=== PATIENT | male | born 1970 | race Caucasian/White ===

== ENCOUNTER 2023-04-26 21:41 | Emergency (ER) | payer OTHER ==
[2023-04-26] MEDS ORDERED: HYDROcodone/APAP 5-325MG 1 EACH TAB PO STA (22:12)
[2023-04-26] MEDS ORDERED: AMOXIC-POT CLAV 875-125MG 1 EACH TAB PO STA (22:12)
[2023-04-26] MEDS ORDERED: KETOROLAC 15 MG/ML 1 ML VIAL IM STA (22:12)
[2023-04-26] MEDS ORDERED: ACET/COD 300 MG/30 MG STARTER PACK 6 TAB BTL PO STA (22:13)
[2023-04-26] MEDS ORDERED: IBUPROFEN 600 MG STARTER PACK 4 TAB BTL PO STA (22:13)
--- NOTE | 2023-04-26 22:14 | ED ---
General Adult HPI - General Chief complaint: Dental/Oral Stated complaint: Dental Pain Time Seen by Provider: 04/26/23 21:51 Source: patient, RN notes reviewed Mode of arrival: ambulatory Limitations: no limitations - History of Present Illness Initial comments: 52-year-old male presents emergency department chief complaint of dental pain. He states that this started today after the crown on his right lower molar broke. He does not have a dentist at this time. He did not take anything for pain prior to arrival. He has a history of hypertension. - Related Data Previous Rx's Medication Instructions Recorded Amoxic-Pot Clav 875-125Mg 1 tab PO Q12HR #14 tab 04/26/23 [Augmentin 875-125] Allergies Allergy/AdvReac Type Severity Reaction Status Date / Time No Known Allergies Allergy Verified 04/26/23 21:46 Review of Systems ROS Statement: Those systems with pertinent positive or pertinent negative responses have been documented in the HPI. ROS Other: All systems not noted in ROS Statement are negative. Past Medical History Past Medical History: Hypertension History of Any Multi-Drug Resistant Organisms: None Reported Past Surgical History: No Surgical Hx Reported Past Psychological History: No Psychological Hx Reported Smoking Status: Former smoker Past Alcohol Use History: None Reported Past Drug Use History: None Reported General Exam Limitations: no limitations General appearance: alert, in no apparent distress Head exam: Present: atraumatic, normocephalic, normal inspection Eye exam: Present: normal appearance, PERRL, EOMI. Absent: scleral icterus, conjunctival injection, periorbital swelling ENT exam: Present: mucous membranes moist, other (fractured right lower molar, no visible abscess) Neck exam: Present: normal inspection, full ROM. Absent: tenderness, meningismus, lymphadenopathy Respiratory exam: Present: normal lung sounds bilaterally. Absent: respiratory distress, wheezes, rales, rhonchi, stridor Cardiovascular Exam: Present: regular rate, normal rhythm, normal heart sounds. Absent: systolic murmur, diastolic murmur, rubs, gallop, clicks Neurological exam: Present: alert, oriented X3 Psychiatric exam: Present: normal affect, normal mood Skin exam: Present: warm, dry, intact, normal color. Absent: rash Course Vital Signs 04/26/23 04/26/23 21:43 22:38 Temperature 97.7 F 98.0 F Pulse Rate 89 82 Respiratory 18 20 Rate Blood Pressure 188/117 140/72 O2 Sat by Pulse 96 98 Oximetry Medical Decision Making - Medical Decision Making Was pt. sent in by a medical professional or institution ([facility], [facility], urgent care, hospital, or snf...) When possible be specific @ -No Did you speak to anyone other than the patient for history (EMS, parent, family, police, friend...)? What history was obtained from this source @ -No Did you review nursing and triage notes (agree or disagree)? Why? @ -I reviewed and agree with nursing and triage notes Were old charts reviewed (outside hosp., previous admission, EMS record, old EKG, old radiological studies, urgent care reports/EKG's, snf records)? Report findings @ -No old charts were reviewed Differential Diagnosis (chest pain, altered mental status, abdominal pain women, abdominal pain men, vaginal bleeding, weakness, fever, dyspnea, syncope, headache, dizziness, GI bleed, back pain, seizure, CVA, palpatations, mental health, musculoskeletal)? @ -dental infection, dental abscess, dental appliance issue, parotiditis, strep throat, this list is not all inclusive EKG interpreted by me (3pts min.). @ -none X-rays interpreted by me (1pt min.). @ -None done CT interpreted by me (1pt min.). @ -None done U/S interpreted by me (1pt. min.). @ -None done What testing was considered but not performed or refused? (CT, X-rays, U/S, labs)? Why? @ -None What meds were considered but not given or refused? Why? @ -None Did you discuss the management of the patient with other professionals (professionals i.e. [facility] Cervantes, [facility], lab, RT, psych nurse, criminal justice social worker, full stack java developer, teacher, delinquency prevention officer, piano case maker)? Give summary @ -No Was smoking cessation discussed for >3mins.? @ -No Was critical care preformed (if so, how long)? @ -No Were there social determinants of health that impacted care today? How? (Homelessness, low income, unemployed, alcoholism, drug addiction, transportation, low edu. Level, literacy, decrease access to med. care, fpc, rehab)? @ -No Was there de-escalation of care discussed even if they declined (Discuss DNR or withdrawal of care, Hospice)? DNR status @ -No What co-morbidities impacted this encounter? (DM, HTN, Smoking, COPD, CAD, Cancer, CVA, ARF, Chemo, Hep., AIDS, mental health diagnosis, sleep apnea, morbid obesity)? @ -None Was patient admitted / discharged? Hospital course, mention meds given and route, prescriptions, significant lab abnormalities, going to OR and other pertinent info. @ -discharged. Patient presented to the emergency department for chief complaint of dental pain x1 day. Patient given Toradol, [place]. Patient given Tylenol 3 starter pack to go home with. Patient will be started on augmentin for dental infection. Advised to follow up with dentist. Patient stable at time of discharge. Case discussed with Dr. Cordon Undiagnosed new problem with uncertain prognosis? @ -No Drug Therapy requiring intensive monitoring for toxicity (Heparin, Nitro, Insulin, Cardizem)? @ -No Were any procedures done? @ -No Diagnosis/symptom? @ -dental infection, fractured tooth Acute, or Chronic, or Acute on Chronic? @ -acute Uncomplicated (without systemic symptoms) or Complicated (systemic symptoms)? @ -Uncomplicated Side effects of treatment? @ -No Exacerbation, Progression, or Severe Exacerbation? @ -No Poses a threat to life or bodily function? How? (Chest pain, [place], [place], pneumonia, PE, COPD, DKA, ARF, appy, cholecystitis, CVA, Diverticulitis, Homicidal, Suicidal, threat to staff... and all critical care pts) @ -No Disposition Clinical Impression: Fractured dental implant Disposition: HOME SELF-CARE Condition: Stable Instructions (If sedation given, give patient instructions): Toothache (ED) Additional Instructions: Please follow up with dentistry. Monitor your blood pressure at home. Follow up with your primary care provider. Return to the emergency department for new or worsening symptoms. Prescriptions: Amoxic-Pot Clav 875-125Mg [Augmentin 875-125] 1 tab PO Q12HR #14 tab Is patient prescribed a controlled substance at d/c from ED?: No Referrals: Nonstaff,Physician [Primary Care Provider] - 1-2 days
[2023-04-26 23:01] VITALS: BP 140/72; PULSE 82; RESP 20; TEMP 98
== END 2023-04-26 22:59 | disposition home or self-care (01) ==
LOC: EC 21:41
DX: K08.530 Fractured dental restorative material without loss of material (principal); I10 Essential (primary) hypertension; Z87.891 Personal history of nicotine dependence
CPT/HCPCS: 99283; 96372; J1885

== ENCOUNTER 2023-05-09 04:26 | Emergency (ER) | payer OTHER ==
[2023-05-09 04:43] VITALS: BP 158/100; PULSE 99; RESP 18; TEMP 98.1
[2023-05-09] MEDS ORDERED: AMPICILLIN-SULBACTAM 3 GM in SODIUM CHLORIDE 0.9% 100 ML IVPB STA (04:47)
[2023-05-09] MEDS ORDERED: DEXAMETHASONE SOD PHOSPHATE 10 MG/ML 1 ML VIAL IVP STA (04:48)
[2023-05-09] MEDS ORDERED: MORPHINE SULFATE 4 MG/ML SYRINGE IVP STA (04:48)
[2023-05-09] MEDS ORDERED: SODIUM CHLORIDE 0.9% 1,000 ML IV STA ×2 (04:49→05:57)
--- NOTE | 2023-05-09 04:59 | ED ---
General Adult HPI - General Source: patient, RN notes reviewed, old records reviewed Mode of arrival: ambulatory Limitations: no limitations <Luis Alfredo Frias - Last Filed: 05/09/23 06:28> <Gianna Cordon - Last Filed: 05/10/23 08:00> - General Chief complaint: Skin/Abscess/Foreign Body Stated complaint: Facial Swelling Time Seen by Provider: 05/09/23 04:47 - History of Present Illness Initial comments: Patient is a 52-year-old male with no significant past medical history who presents emergency Department complaining of facial infection. States he does not take any medications. States that 2 days ago he popped a boil/zit that was located in the midline of his lower lip and since that time he has had increased swelling and pain over the left lower jaw extending from the lip line towards the chin and out towards his cheek. Denies any difficulty in swallowing or breathing. States his speech is different because of the swelling. Denies any tongue swelling that he knows of. Denies any fevers, chills, cough. Was due to have a dental procedure yesterday however they refused to the infection. Has not been on antibiotics. Last tetanus was last year. Presents for further evaluation at this time. Is not on any form of ALISON inhibitor.States he is still getting drainage from the zit site. (Luis Alfredo Frias) - Related Data Previous Rx's Medication Instructions Recorded Amoxic-Pot Clav 875-125Mg 1 tab PO Q12HR #14 tab 04/26/23 [Augmentin 875-125] Cephalexin [Keflex] 500 mg PO Q6HR #28 cap 05/09/23 Cyclobenzaprine [Flexeril] 10 mg PO HS #10 tab 05/09/23 HYDROcodone/APAP 7.5-325MG [[place] 1 tab PO Q6HR PRN 3 Days #12 tab 05/09/23 7.5-325] predniSONE [Deltasone] 20 mg PO BID #10 tab 05/09/23 valACYclovir HCL [Valacyclovir] 1,000 mg PO BID #14 tab 05/09/23 Allergies Allergy/AdvReac Type Severity Reaction Status Date / Time No Known Allergies Allergy Verified 05/09/23 04:34 Review of Systems ROS Other: All systems not noted in ROS Statement are negative. <Luis Alfredo Frias - Last Filed: 05/09/23 06:28> ROS Other: All systems not noted in ROS Statement are negative. <Gianna Cordon Annette - Last Filed: 05/10/23 08:00> ROS Statement: Those systems with pertinent positive or pertinent negative responses have been documented in the HPI. Past Medical History Past Medical History: Hypertension History of Any Multi-Drug Resistant Organisms: None Reported Past Surgical History: No Surgical Hx Reported Past Psychological History: No Psychological Hx Reported Smoking Status: Former smoker Past Alcohol Use History: None Reported Past Drug Use History: None Reported <Luis Alfredo Frias - Last Filed: 05/09/23 06:28> General Exam Limitations: no limitations <Luis Alfredo Frias - Last Filed: 05/09/23 06:28> - General Exam Comments Initial Comments: General: Appears in mild distress. HEAD: Normal with no signs of head trauma. EYES: PERRLA, EOMI, conjunctiva normal, no discharge. Pupils are 3 mm equal bilaterally. ENT: Hearing grossly intact. Edema and induration located over the left aspect of the mandible anteriorly extending from the lip line to the lower edge of the mandible. Uvula midline. No posterior oropharyngeal swelling. No tongue swelling. No stridor. Tolerating oral secretions. No obvious floor of the mouth swelling. RESPIRATORY: Clear breath sounds bilaterally. No wheezes, rales, or rhonchi. C/V: Regular rate and rhythm. S1 and S2 auscultated, peripheral pulses 2+ and intact throughout ABD: Abd is soft, nontender, nondistended EXT: Normal range of motion, no obvious deformity SKIN: Erythema, edema located over the left skin over the mandible. No obvious fluctuance. Purulent material located at the source of a pimple on the inferior aspect of the lower lip. NEURO: Alert and oriented x 4. Cranial nerves II-XII intact. No focal sensory or strength deficits. (Luis Alfredo Frias) Course Vital Signs 05/09/23 04:30 Temperature 98.1 F Pulse Rate 99 Respiratory 18 Rate Blood Pressure 158/100 O2 Sat by Pulse 99 Oximetry Medical Decision Making - Lab Data Result diagrams: 05/09/23 05:05 05/09/23 05:05 <Luis Alfredo Frias - Last Filed: 05/09/23 06:28> - Lab Data Result diagrams: 05/09/23 05:05 05/09/23 05:05 <Gianna Cordon - Last Filed: 05/10/23 08:00> - Medical Decision Making Was pt. sent in by a medical professional or institution ([facility], [facility], urgent care, hospital, or long term...) When possible be specific @ -No Did you speak to anyone other than the patient for history (EMS, parent, family, police, friend...)? What history was obtained from this source @ -No Did you review nursing and triage notes (agree or disagree)? Why? @ -I reviewed and agree with nursing and triage notes Were old charts reviewed (outside hosp., previous admission, EMS record, old EKG, old radiological studies, urgent care reports/EKG's, long term records)? Report findings @ -No old charts were reviewed Differential Diagnosis (chest pain, altered mental status, abdominal pain women, abdominal pain men, vaginal bleeding, weakness, fever, dyspnea, syncope, headache, dizziness, GI bleed, back pain, seizure, CVA, palpatations, mental health, musculoskeletal)? @ -Cellulitis, Lyle's angina, abscess, angioedema. This list is not all inclusive. EKG interpreted by me (3pts min.). @ -None done X-rays interpreted by me (1pt min.). @ -None done CT interpreted by me (1pt min.). @ -Pending U/S interpreted by me (1pt. min.). @ -None done What testing was considered but not performed or refused? (CT, X-rays, U/S, labs)? Why? @ -None What meds were considered but not given or refused? Why? @ -None Did you discuss the management of the patient with other professionals (professionals i.e. [facility] Cervantes, [facility], lab, RT, psych nurse, adoption social worker, blanket inspector, t eacher, agricultural technical officer, porter sample case)? Give summary @ -No Was smoking cessation discussed for >3mins.? @ -No Was critical care preformed (if so, how long)? @ -No Were there social determinants of health that impacted care today? How? (Homelessness, low income, unemployed, alcoholism, drug addiction, transportation, low edu. Level, literacy, decrease access to med. care, [facility], rehab)? @ -No Was there de-escalation of care discussed even if they declined (Discuss DNR or withdrawal of care, Hospice)? DNR status @ -No What co-morbidities impacted this encounter? (DM, HTN, Smoking, COPD, CAD, Cancer, CVA, ARF, Chemo, Hep., AIDS, mental health diagnosis, sleep apnea, morbid obesity)? @ -None Was patient admitted / discharged? Hospital course, mention meds given and ro crow, prescriptions, significant lab abnormalities, going to OR and other pertinent info. @ -Based on the patient's presentation and physical exam, presents with concern for facial infection. Low concern for angioedema at this time as he is on no ALISON inhibitor use and no history of it. Based be more infectious in nature considering there is a source, the pimple located over the inferior aspect of the lip which is still draining purulent material. Over concern for Lyle ang sharath, we will obtain CT imaging. Labs will be obtained. Cultures will be sent and obtained. Patient will be given a dose of Unasyn as well as Decadron. He is up-to-date on tetanus. He was in agreement this plan. He will receive morphine for pain control. Patient's laboratory studies remarkable for leukocytosis of 13, lactic acid of 2.9. Imaging is still pending. Patient signed out to Dr. Cordon pending results of imaging. Undiagnosed new problem with uncertain prognosis? @ -No Drug Therapy requiring intensive monitoring for toxicity (Heparin, Nitro, Insulin, Cardizem)? @ -No Were any procedures done? @ -No (Luis Alfredo Frias) Was patient admitted / discharged? Hospital course, mention meds given and route, prescriptions, significant lab abnormalities, going to OR and other pertinent info. @ -I evaluated the patient myself. I discussed the CT results with him. Patient adamantly does not want to stay hospitalized even though this is offered. I questioned him about his previous antibiotic use. He was seen in the emergency department on the of this month and prescribed Augmentin. He states he never knew that he was prescribed antibiotics and therefore did not take any. As the patient has not previously failed outpatient treatment for his cellulitis/herpes labialis I do feel that it is appropriate to try outpatient antibiotics and antivirals. Patient was given a dose of valacyclovir in the emergency department. He is requesting pain medications upon discharge. I will prescribe him a short course of [place]. Side effect profile was discussed. Patient's will monitor symptoms. Return in 48 hours should his symptoms not improve or if they get worse. He was agreeable to this. Patient discharged in stable condition Undiagnosed new problem with uncertain prognosis? @ -No Drug Therapy requiring intensive monitoring for toxicity (Heparin, Nitro, Insulin, Cardizem)? @ -No Were any procedures done? @ -No Diagnosis/symptom? @ -Acute lip/left lower face swelling, possible herpes labialis, possible cellulitis Acute, or Chronic, or Acute on Chronic? @ -Acute Uncomplicated (without systemic symptoms) or Complicated (systemic symptoms)? @ -Complicated Side effects of treatment? @ -No Exacerbation, Progression, or Severe Exacerbation? @ -No Poses a threat to life or bodily function? How? (Chest pain, [place], [place], pneumonia, PE, COPD, DKA, ARF, appy, cholecystitis, CVA, Diverticulitis, Homicidal, Suicidal, threat to staff... and all critical care pts) @ -No (Gianna Cordon) - Lab Data Lab Results 05/09/23 05/09/23 05/09/23 Range/Units 05:05 05:05 05:05 WBC 13.0 H (3.8-10.6) k/uL RBC 4.72 (4.30-5.90) m/uL Hgb 15.2 (13.0-17.5) gm/dL Hct 45.5 (39.0-53.0) % MCV 96.4 (80.0-100.0) fL MCH 32.2 (25.0-35.0) pg MCHC 33.5 (31.0-37.0) g/dL RDW 13.2 (11.5-15.5) % Plt Count 376 (150-450) k/uL MPV 7.5 Neutrophils % 71 % Lymphocytes % 17 % Monocytes % 8 % Eosinophils % 1 % Basophils % 0 % Neutrophils # 9.3 H (1.3-7.7) k/uL Lymphocytes # 2.2 (1.0-4.8) k/uL Monocytes # 1.1 H (0-1.0) k/uL Eosinophils # 0.2 (0-0.7) k/uL Basophils # 0.0 (0-0.2) k/uL Sodium 136 L (137-145) mmol/L Potassium 4.4 (3.5-5.1) mmol/L Chloride 100 (98-107) mmol/L Carbon Dioxide 25 (22-30) mmol/L Anion Gap 11 mmol/L BUN 14 (9-20) mg/dL Creatinine 0.80 (0.66-1.25) mg/dL Est GFR (CKD-EPI)AfAm >90 (>60 ml/min/1.73 sqM) Est GFR (CKD-EPI)NonAf >90 (>60 ml/min/1.73 sqM) Glucose 162 H (74-99) mg/dL Lactic Ac Sepsis Rflx Plasma Lactic Acid [place] 2.9 H* (0.7-2.0) mmol/L Calcium 9.6 (8.4-10.2) mg/dL Total Bilirubin 0.3 (0.2-1.3) mg/dL AST 20 (17-59) U/L ALT 21 (4-49) U/L Alkaline Phosphatase 64 (38-126) U/L Total Protein 6.6 (6.3-8.2) g/dL Albumin 4.1 (3.5-5.0) g/dL 05/09/23 Range/Units 05:56 WBC (3.8-10.6) k/uL RBC (4.30-5.90) m/uL Hgb (13.0-17.5) gm/dL Hct (39.0-53.0) % MCV (80.0-100.0) fL MCH (25.0-35.0) pg MCHC (31.0-37.0) g/dL RDW (11.5-15.5) % Plt Count (150-450) k/uL MPV Neutrophils % % Lymphocytes % % Monocytes % % Eosinophils % % Basophils % % Neutrophils # (1.3-7.7) k/uL Lymphocytes # (1.0-4.8) k/uL Monocytes # (0-1.0) k/uL Eosinophils # (0-0.7) k/uL Basophils # (0-0.2) k/uL Sodium (137-145) mmol/L Potassium (3.5-5.1) mmol/L Chloride (98-107) mmol/L Carbon Dioxide (22-30) mmol/L Anion Gap mmol/L BUN (9-20) mg/dL Creatinine (0.66-1.25) mg/dL Est GFR (CKD-EPI)AfAm (>60 ml/min/1.73 sqM) Est GFR (CKD-EPI)NonAf (>60 ml/min/1.73 sqM) Glucose (74-99) mg/dL Lactic Ac Sepsis Rflx Y Plasma Lactic Acid [place] (0.7-2.0) mmol/L Calcium (8.4-10.2) mg/dL Total Bilirubin (0.2-1.3) mg/dL AST (17-59) U/L ALT (4-49) U/L Alkaline Phosphatase (38-126) U/L Total Protein (6.3-8.2) g/dL Albumin (3.5-5.0) g/dL Disposition <Luis Alfredo Frias - Last Filed: 05/09/23 06:28> Is patient prescribed a controlled substance at d/c from ED?: Yes When asked, does pt state using other controlled substances?: No If prescribed controlled substance>3 days was MAPS reviewed?: Prescribed <3 Days If opioid is for acute pain is fill amount 7 days or less?: Yes Time of Disposition: 07:55 <Gianna Cordon - Last Filed: 05/10/23 08:00> Clinical Impression: Facial cellulitis, Oral herpes simplex infection Disposition: HOME SELF-CARE Condition: Stable Instructions (If sedation given, give patient instructions): Cellulitis (ED) Additional Instructions: Please take the antibiotics and antivirals as directed. Return should your symptoms not improve in 48 hours Prescriptions: Cephalexin [Keflex] 500 mg PO Q6HR #28 cap HYDROcodone/APAP 7.5-325MG [[place] 7.5-325] 1 tab PO Q6HR PRN 3 Days #12 tab PRN Reason: Pain valACYclovir HCL [Valacyclovir] 1,000 mg PO BID #14 tab Referrals: Nonstaff,Physician [Primary Care Provider] - 1-2 days
[2023-05-09 05:36] LABS: Basophils % (A) 0 %; Eosinophils # (A) 0.2 k/uL (0-0.7); Eosinophils % (A) 1 %; HCT 45.5 % (39.0-53.0); HGB 15.2 gm/dL (13.0-17.5); Lymphocytes # (A) 2.2 k/uL (1.0-4.8); Lymphocytes % (A) 17 %; MCH 32.2 pg (25.0-35.0); MCHC 33.5 g/dL (31.0-37.0); MCV 96.4 fL (80.0-100.0); Mean Platelet Volume 7.5; Monocytes # (A) 1.1 k/uL (0-1.0); Monocytes % (A) 8 %; Neutrophils # (A) 9.3 k/uL (1.3-7.7); Neutrophils % (A) 71 %; Platelet Count 376 k/uL (150-450); RBC 4.72 m/uL (4.30-5.90); RDW 13.2 % (11.5-15.5)
[2023-05-09 05:54] LABS: ALT 21 U/L (4-49); AST 20 U/L (17-59); African American GFR (CKD) >90 (>60 ml/min/1.73 sqM); Albumin 4.1 g/dL (3.5-5.0); Alkaline Phosphatase 64 U/L (38-126); Anion Gap 11 mmol/L; Blood Urea Nitrogen 14 mg/dL (9-20); Calcium 9.6 mg/dL (8.4-10.2); Carbon Dioxide 25 mmol/L (22-30); Chloride 100 mmol/L (98-107); Glucose 162 mg/dL (74-99); Non-African American GFR(CKD) >90 (>60 ml/min/1.73 sqM); Potassium 4.4 mmol/L (3.5-5.1); Sodium 136 mmol/L (137-145); Total Bilirubin 0.3 mg/dL (0.2-1.3); Total Protein 6.6 g/dL (6.3-8.2)
--- NOTE | 2023-05-09 07:23 | CT ---
EXAMINATION TYPE: CT soft tissue neck w con CT DLP: 240 mGycm, Automated exposure control for dose reduction was used. DATE OF EXAM: 05/09/2023 6:22 AM COMPARISON: None. CLINICAL INDICATION:Male, 52 years old with history of facial infection; [facility], TECHNIQUE: Standard enhanced CT of the neck. Axial sections with coronal and sagittal reformats were obtained. Contrast used: mL of , (None if empty) Oral contrast used: (None if empty) FINDINGS: Brain: Visualized portions are grossly unremarkable. Metallic clip near the [place] of [place] near mid line.. Orbits: Unremarkable Sinuses: Few opacified right mastoid air cells. Mild mucosal thickening of the left mastoid air cells . Spaces of the neck: Simultaneous edema/fat stranding along the left cheek near the mandible. No teeth on the left lower mandible, however there is a left upper tooth first bicuspid with periapical lucen cy. The palatine tonsils are enlarged with narrowing of the airway.. Musculoskeletal: No acute osseous pathology. Lymph nodes: Multiple nonenlarged lymph nodes are seen along both anterior chains of the neck. Vascular structures: Visualized major arteries are patent without evidence of aneurysm. Thoracic Inlet/airway: Airway is patent. Mild paraseptal emphysema changes in the lung apices. Soft tissues/Thyroid: Thyroid and remainder of the soft tissues are unremarkable. Other: none. IMPRESSION 1. Soft tissue swelling of the left cheek without evidence of organizing fluid collection. There are no teeth in the lower mandible in this area. Left upper second bicuspid periapical lucency compatibl e with periodontal disease. The inflammation is not definitively centered around this tooth however. Correlate for cellulitis possibly secondary to periodontal disease. 2. [place] tonsil enlargement with narrowing of the airway 3. Trace right mastoid air cell effusion. 4. Mild emphysema.
[2023-05-09] MEDS ORDERED: valACYclovir HCL 1,000 MG TABLET PO STA (07:50)
== END 2023-05-09 08:21 | disposition home or self-care (01) ==
LOC: EC 04:26
DX: L03.211 Cellulitis of face (principal); B00.2 Herpesviral gingivostomatitis and pharyngotonsillitis; J35.1 Hypertrophy of tonsils; J43.9 Emphysema, unspecified; I10 Essential (primary) hypertension; Z87.891 Personal history of nicotine dependence
CPT/HCPCS: 36415; 80053; 83605; 85025; 87040; 87077; 87186; 70491; 99284; 96365; 96375 ×2; 96361; J2270; J1100; J0295; Q9967

== ENCOUNTER 2023-05-09 13:43 | Emergency (ER) | payer OTHER ==
--- NOTE | 2023-05-09 13:51 | ED ---
ENT HPI <Mahogany Anne - Last Filed: 05/09/23 13:49> <Gianna Cordon - Last Filed: 05/09/23 15:46> - General Stated complaint: abcess tooth Time Seen by Provider: 05/09/23 14:05 - History of Present Illness Initial comments: Patient is a 52-year-old gentleman who returns to the emergency room with multiple complaints including dental pain, infection to the lips and TMJ pain. Was seen last night for similar complaints. (Mahogany Anne) 58-year-old male just seen in the emergency department this morning for facial cellulitis. He was discharged home on antibiotics and antivirals as there was suspicion for herpes simplex. Patient states that he went home and began having terrible pain in his right TMJ. States that this is a long-standing issue for him. He also has dental pain on the right upper maxilla. Swelling from the patient's cellulitis/herpes is improved from discharge earlier today. He had been offered hospitalization however he declined. He did nut picker his medications from the pharmacy. He admits to taking 1 of the pain pills however it did not alleviate his pain and therefore he came right back to the emergency department. He denies any fevers. States that he did see his dentist in regards to his dental pain however because of his lip infection they would not actively treat him. Patient presents requesting stronger pain medications for at home as well as pain control in the emergency department (Gianna Cordon) - Related Data Previous Rx's Medication Instructions Recorded Amoxic-Pot Clav 875-125Mg 1 tab PO Q12HR #14 tab 04/26/23 [Augmentin 875-125] Cephalexin [Keflex] 500 mg PO Q6HR #28 cap 05/09/23 Cyclobenzaprine [Flexeril] 10 mg PO HS #10 tab 05/09/23 HYDROcodone/APAP 7.5-325MG [Rumsey 1 tab PO Q6HR PRN 3 Days #12 tab 05/09/23 7.5-325] predniSONE [Deltasone] 20 mg PO BID #10 tab 05/09/23 valACYclovir HCL [Valacyclovir] 1,000 mg PO BID #14 tab 05/09/23 Allergies Allergy/AdvReac Type Severity Reaction Status Date / Time No Known Allergies Allergy Verified 05/09/23 04:34 Review of Systems ROS Other: All systems not noted in ROS Statement are negative. <Mahogany Anne - Last Filed: 05/09/23 13:49> ROS Other: All systems not noted in ROS Statement are negative. <Gianna Cordon Annette - Last Filed: 05/09/23 15:46> ROS Statement: Those systems with pertinent positive or pertinent negative responses have been documented in the HPI. Past Medical History Past Medical History: Hypertension History of Any Multi-Drug Resistant Organisms: None Reported Past Surgical History: No Surgical Hx Reported Past Psychological History: No Psychological Hx Reported Smoking Status: Former smoker Past Alcohol Use History: None Reported Past Drug Use History: None Reported <Mahogany Anne - Last Filed: 05/09/23 13:49> General Exam <Mahogany Anne - Last Filed: 05/09/23 13:49> General appearance: alert, in no apparent distress Head exam: Present: atraumatic, normocephalic, normal inspection Eye exam: Present: normal appearance, PERRL, EOMI. Absent: scleral icterus, conjunctival injection, periorbital swelling ENT exam: Present: mucous membranes moist, other (Tenderness to the TMJ on the right. No overlying swelling. No identifiable oral abscess. Airway is patent. Mild swelling to the left upper lip with crusting to the right lower lip) Neck exam: Present: normal inspection. Absent: tenderness, meningismus, lymphadenopathy Respiratory exam: Present: normal lung sounds bilaterally. Absent: respiratory distress, wheezes, rales, rhonchi, stridor Cardiovascular Exam: Present: regular rate, normal rhythm, normal heart sounds. Absent: systolic murmur, diastolic murmur, rubs, gallop, clicks GI/Abdominal exam: Present: soft, normal bowel sounds. Absent: distended, tende rness, guarding, rebound, rigid Extremities exam: Present: normal inspection, full ROM, normal capillary refill. Absent: tenderness, pedal edema, joint swelling, calf tenderness Back exam: Present: normal inspection Neurological exam: Present: alert, oriented X3, CN II-XII intact Psychiatric exam: Present: normal affect, normal mood Skin exam: Present: warm, dry, intact, normal color. Absent: rash <Gianna Cordon Annette - Last Filed: 05/09/23 15:46> - General Exam Comments Initial Comments: Visual Physical Exam Vital signs reviewed General: Well-appearing, nontoxic, no acute distress. Head: Normocephalic, atraumatic Eyes: PERRLA, EOMI ENT: Airway patent Chest: Nonlabored breathing Skin: No visual rash, normal skin tone Neuro: Alert and oriented 3 Musculoskeletal: No gross abnormalities (Mahogany Anne) Course Vital Signs 05/09/23 13:58 Temperature 98.1 F Pulse Rate 53 L Respiratory 16 Rate Blood Pressure 173/80 O2 Sat by Pulse 98 Oximetry Medical Decision Making <Mahogany Anne - Last Filed: 05/09/23 13:49> <Gianna Cordon - Last Filed: 05/09/23 15:46> - Medical Decision Making The quick note portion of this exam was completed by myself, electronically signed by EZIO Rojas. (Mahogany Anne) Was pt. sent in by a medical professional or institution (, PA, CURAM DEVELOPER, urgent care, hospital, or long term...) When possible be specific @ -No Did you speak to anyone other than the patient for history (EMS, parent, family, police, friend...)? What history was obtained from this source @ -No Did you review nursing and triage notes (agree or disagree)? Why? @ -I reviewed and agree with nursing and triage notes Were old charts reviewed (outside hosp., previous admission, EMS record, old EKG, old radiological studies, urgent care reports/EKG's, long term records)? Report findings @ -I reviewed the patient's chart from earlier today Differential Diagnosis (chest pain, altered mental status, abdominal pain women, abdominal pain men, vaginal bleeding, weakness, fever, dyspnea, syncope, headache, dizziness, GI bleed, back pain, seizure, CVA, palpatations, mental health, musculoskeletal)? @ -TMJ, dental abscess, dentalgia, Lyle, cellulitis, abscess, herpes labialis EKG interpreted by me (3pts min.). @ -Not done X-rays interpreted by me (1pt min.). @ -None done CT interpreted by me (1pt min.). @ -None done U/S interpreted by me (1pt. min.). @ -None done What testing was considered but not performed or refused? (CT, X-rays, U/S, labs)? Why? @ -CT imaging as patient are to had a CT done this morning What meds were considered but not given or refused? Why? @ -None Did you discuss the management of the patient with other professionals (professionals i.e. , PA, CURAM DEVELOPER, lab, RT, psych nurse, social services analyst, supervisor rod placing, teacher, signals officer, piano case maker)? Give summary @ -No Was smoking cessation discussed for >3mins.? @ -No Was critical care preformed (if so, how long)? @ -No Were there social determinants of health that impacted care today? How? (Homelessness, low income, unemployed, alcoholism, drug addiction, transporta tion, low edu. Level, literacy, decrease access to med. care, snf, rehab)? @ -No Was there de-escalation of care discussed even if they declined (Discuss DNR or withdrawal of care, Hospice)? DNR status @ -No What co-morbidities impacted this encounter? (DM, HTN, Smoking, COPD, CAD, Cancer, CVA, ARF, Chemo, Hep., AIDS, mental health diagnosis, sleep apnea, morbid obesity)? @ -TMJ, poor dentition Was patient admitted / discharged? Hospital course, mention meds given and route, prescriptions, significant lab abnormalities, going to OR and other pertinent info. @ -Upon arrival patient was evaluated in the waiting room as there are no beds. I reviewed the patient's previous charts. He did nut picker his medications and took a dose of his pain medication. He now reports to right TMJ pain which is a new complaint of him. The facial swelling already appears much improved. Patient's requesting pain medication for which she was given 1 mg of IM Dilaudid. Because of this TMJ pain I will place him on steroids for which she received 125 mg of IM Solu-Medrol. He'll be placed on prednisone 20 mg twice daily for the next 5 days. He is requesting a muscle relaxer. He has already been prescribe pain medications. Inform the patient that he cannot take a mus sergio relaxer and the Rumsey at the same time due to sedation effects. He states that he will take a muscle relaxer at night space out away from his Rumsey. Patient is artery on antibiotics and antivirals which she is to continue. Follow up with his dentist and return for any new or worsening symptoms. Patient agreeable to plan and was discharged in stable condition Undiagnosed new problem with uncertain prognosis? @ -No Drug Therapy requiring intensive monitoring for toxicity (Heparin, Nitro, Insulin, Cardizem)? @ -No Were any procedures done? @ -No Diagnosis/symptom? @ -Acute right TMJ pain, acute dentalgia, facial cellulitis versus herpes labialis Acute, or Chronic, or Acute on Chronic? @ -Acute Uncomplicated (without systemic symptoms) or Complicated (systemic symptoms)? @ -Complicated Side effects of treatment? @ -No Exacerbation, Progression, or Severe Exacerbation? @ -No Poses a threat to life or bodily function? How? (Chest pain, [place], [place], pneumonia, PE, COPD, DKA, ARF, appy, cholecystitis, CVA, Diverticulitis, Homicidal, Suicidal, threat to staff... and all critical care pts) @ -No (Gianna Cordon) Disposition <Mahogany Anne - Last Filed: 05/09/23 13:49> Is patient prescribed a controlled substance at d/c from ED?: No Time of Disposition: 14:34 <Gianna Cordon - Last Filed: 05/09/23 15:46> Clinical Impression: Fractured dental implant, Oral herpes simplex infection Disposition: HOME SELF-CARE Condition: Stable Instructions (If sedation given, give patient instructions): Temporomandibular Disorder (ED), Toothache (ED) Additional Instructions: Please take the pain medications as directed. Use the muscle relaxer only at night and spaced out from your pain medication. Take the steroids as directed. Continue the antibiotics and antivirals. Follow-up with your doctor and santo barnett. Return for any new or worsening symptoms Prescriptions: predniSONE [Deltasone] 20 mg PO BID #10 tab Cyclobenzaprine [Flexeril] 10 mg PO HS #10 tab Referrals: Nonstaff,Physician [Primary Care Provider] - 1-2 days
[2023-05-09 14:13] VITALS: BP 173/80; PULSE 53; RESP 16; TEMP 98.1
[2023-05-09] MEDS ORDERED: HYDROmorphone 1 MG/ML 1 ML SYRINGE IM STA (14:27)
[2023-05-09] MEDS ORDERED: methylPREDNISolone SOD SUCCI 125 MG/2 ML VIAL IM ONE (14:33)
== END 2023-05-09 15:35 | disposition home or self-care (01) ==
LOC: SUPCPDRO 13:43 → EC 13:43
DX: K08.530 Fractured dental restorative material without loss of material (principal); B00.2 Herpesviral gingivostomatitis and pharyngotonsillitis; I10 Essential (primary) hypertension; Z87.891 Personal history of nicotine dependence
CPT/HCPCS: 99282; 96372 ×2; J2930; J1170